=== PATIENT | male | born 2000 | race African-American/Black ===

== ENCOUNTER 2019-10-29 02:42 | Emergency (ER) | payer MEDICAID ==
[~2019-10-29] VITALS: Ht 172.7 cm; Wt 61.0 kg
[2019-10-29 02:50] VITALS: BP 117/75
[2019-10-29] MEDS ORDERED: IBUPROFEN 600MG TABLET PO ONE (03:45)
== END 2019-10-29 04:15 | disposition home or self-care (01) ==
LOC: EDBD 02:42 → ER 02:42
DX: J02.9 Acute pharyngitis, unspecified (principal); F31.9 Bipolar disorder, unspecified; Z91.018 Allergy to other foods
CPT/HCPCS: 99283

== ENCOUNTER 2021-10-11 18:14 | Emergency (ER) | payer BC, MEDICAID, OTHER ==
[~2021-10-11] VITALS: Ht 165.1 cm; Wt 75.0 kg
[2021-10-11] MEDS ORDERED: MAG355OR21 MT (18:40)
[2021-10-11] MEDS ORDERED: VISCOUS LIDOCAINE 2% 15 ML UDC MM ONE (18:45)
[2021-10-11] MEDS ORDERED: MAGNESIUM/ALUMINUM HYDROXIDE/SIMETHICONE 30ML UDC PO ONE (18:45)
[2021-10-11 19:40] VITALS: BP 128/91
== END 2021-10-11 19:40 | disposition home or self-care (01) ==
LOC: ER 18:14
DX: F45.8 Other somatoform disorders (principal); F12.10 Cannabis abuse, uncomplicated; F31.9 Bipolar disorder, unspecified
CPT/HCPCS: 99283

== ENCOUNTER 2024-12-19 17:11 | Emergency (ER) | payer MEDICARE, MEDICAID ==
[~2024-12-19] VITALS: Ht 167.6 cm; Wt 58.0 kg
[~2024-12-19 17:11] MED LIST: MAG355OR21 MT
[2024-12-19 17:17] VITALS: O2SAT 98
[2024-12-19 18:06] LABS: CLARITY URINE CLEAR (CLEAR); COLOR URINE YELLOW (YELLOW); GLUCOSE URINE NEGATIVE (NEGATIVE); KETONES URINE TRACE (NEGATIVE); LEUKOCYTE ESTERASE URINE NEGATIVE (NEGATIVE); NITRITE URINE NEGATIVE (NEGATIVE); OCCULT BLOOD URINE NEGATIVE (NEGATIVE); PH URINE 5.5 (4.5-8.0); PROTEIN URINE NEGATIVE (NEGATIVE); SPECIFIC GRAVITY URINE 1.023 (1.005-1.030); UROBILINOGEN URINE 0.2 E.U./dL (0.2-1.0)
[2024-12-19 18:20] LABS: *AMPHETAMINES SCREEN URINE NEGATIVE (NEGATIVE); *BARBITURATES SCREEN URINE NEGATIVE (NEGATIVE); *BENZODIAZEPINES SCREEN URINE NEGATIVE (NEGATIVE); *COCAINE SCREEN URINE NEGATIVE (NEGATIVE); CANNABINOID URINE SCREEN PRESUMPTIVE POSITIVE (NEGATIVE); ECSTASY MDMA SCREEN URINE NEGATIVE (NEGATIVE); METHADONE URINE SCREEN NEGATIVE (NEGATIVE); OPIATES URINE SCREEN NEGATIVE (NEGATIVE); PHENCYCLIDINE URINE SCREEN NEGATIVE (NEGATIVE)
[2024-12-19 19:08] LABS: CHLORIDE 105 mEq/L (98-107); POTASSIUM 3.7 mEq/L (3.5-5.1); SODIUM 138 mEq/L (136-145)
[2024-12-19 19:09] LABS: CALCIUM 9.7 mg/dL (8.7-10.4); CARBON DIOXIDE 26 mEq/L (21-32)
[2024-12-19 19:10] LABS: BASOPHILS % 1.1 % (0.0-2.0); EOSINOPHILS % 2.9 % (0.0-5.0); HEMATOCRIT. 41.4 % (42.0-52.0); HEMOGLOBIN. 13.7 g/dL (14.0-18.0); LYMPHOCYTES % 34.8 % (20.0-50.0); MEAN CORPUSCULAR HEMOGLOBIN 30.6 pg (28.0-32.0); MEAN CORPUSCULAR VOLUME 92.7 fL (80.0-94.0); MEAN PLATELET VOLUME 9.1 fl (7.4-10.4); MONOCYTES % 9.3 % (2.0-8.0); NEUTROPHILS % 51.9 % (40.0-76.0); PLATELET 194 x1000/uL (130-400); RED BLOOD CELL COUNT 4.46 mill/uL (4.7-6.1); RED CELL DISTRIBUTION WIDTH 12.8 % (11.6-14.6); WHITE BLOOD COUNT 6.6 x1000/uL (4.5-11.0)
[2024-12-19 19:14] LABS: CREATININE 1.3 mg/dL (0.6-1.3); GLUCOSE 98 mg/dL (70-105); UREA NITROGEN BLOOD 20 mg/dL (9-23)
[2024-12-19 19:15] LABS: ETHANOL BLOOD < 10 mg/dL (<10)
[2024-12-19 19:16] LABS: ACETAMINOPHEN < 2 ug/mL (10-30); ALANINE AMINOTRANSFERASE 12 IU/L (10-49); ALBUMIN 4.7 g/dL (3.2-4.8); ASPARTATE AMINOTRANSFERASE 21 IU/L (<34); BILIRUBIN DIRECT 0.1 mg/dL (<=3.0)
[2024-12-19 19:17] LABS: BILIRUBIN TOTAL 0.6 mg/dL (0.1-1.0); PROTEIN TOTAL 7.4 g/dL (6.0-8.3)
[2024-12-20] MEDS ORDERED: HYDROXYZINE 25MG TABLET PO PRN (12:15)
[2024-12-20] MEDS: RISPERIDONE 0.5MG TABLET PO SCH (12:59)
[2024-12-20 14:34] VITALS: BP 153/90; PULSE 63; RESP 16; TEMP 36.9; O2SAT 99
== END 2024-12-20 14:30 ==
LOC: ER 17:11
DX: R44.0 Auditory hallucinations (principal); R46.2 Strange and inexplicable behavior; Z79.899 Other long term (current) drug therapy; Z20.822 Contact with and (suspected) exposure to COVID-19
CPT/HCPCS: 36415; 80048; 80076; 80305; 80307; 80320; 80329; 81003; 85025; 87426; 99285; G0480